=== PATIENT | female | born 1970 | race Caucasian/White ===

== ENCOUNTER 2021-10-27 21:46 | Emergency (ER) | payer OTHER ==
[2021-10-28] MEDS ORDERED: SODIUM CHLORIDE 0.9% 1,000 ML IV ONE (00:04)
[2021-10-28] MEDS ORDERED: ONDANSETRON 4 MG/2 ML VIAL IVP STA (00:04)
[2021-10-28] MEDS ORDERED: KETOROLAC 15 MG/ML 1 ML VIAL IVP STA (00:04)
[2021-10-28] MEDS ORDERED: cefTRIAXone IN SWFI 1,000 MG/10 ML SYRINGE IVP STA (00:06)
[2021-10-28] MEDS ORDERED: SODIUM CHLORIDE 0.9% 50 ML IVPB ONE (01:00)
[2021-10-28] MEDS ORDERED: BAMLANIVIMAB (EUA) 700 MG, ETESEVIMAB (EUA) 1,400 MG in SODIUM CHLORIDE 0.9% 100 ML IVPB ONE (01:00)
--- NOTE | 2021-10-28 02:33 | XR ---
EXAMINATION TYPE: XR chest 2V DATE OF EXAM: 10/28/2021 COMPARISON: NONE HISTORY: Cough TECHNIQUE: 2 views FINDINGS: Heart and mediastinum are normal. Lungs are clear. Diaphragm is normal. Bony thorax is inta ct. IMPRESSION: Normal chest.
--- NOTE | 2021-10-28 02:36 | ED ---
URI HPI - General Chief Complaint: Upper Respiratory Infection Stated Complaint: covid+, wants bam infusion Time Seen by Provider: 10/27/21 23:50 Source: patient Mode of arrival: ambulatory Limitations: no limitations - History of Present Illness Initial Comments: 51 -year-old female patient presents to the emergency department for monoclonal antibody infusion after testing positive for COVID-19. Patient went to urgent care due to urinary symptoms and history of frequent UTIs. They tested her for COVID and she was positive. Patient has history of hypertension and lymphoma and was advised to receive the infusion. She reports cough, congestion, and mild shortness of breath. States she did take mucinex last night for symptoms. She denies any known fever or chills. Reports nausea with one episode of vomiting. Patient denies any recent rash, abdominal pain, nausea, vomiting, diarrhea, constipation, back pain, numbness, tingling, dizziness, weakness, headache, visual changes, or any other complaints. - Related Data Previous Rx's Medication Instructions Recorded Ondansetron [Zofran ODT] 4 mg PO Q8HR PRN #10 tab 10/28/21 Allergies Allergy/AdvReac Type Severity Reaction Status Date / Time Penicillins Allergy Rash/Hives Verified 10/27/21 23:39 nickel AdvReac Rash/Hives Verified 10/27/21 23:40 Review of Systems ROS Statement: Those systems with pertinent positive or pertinent negative responses have been documented in the HPI. ROS Other: All systems not noted in ROS Statement are negative. Past Medical History Past Medical History: Cancer, Hypertension, Thyroid Disorder Additional Past Medical History / Comment(s): Remission non hodgkins folicular lymphoma, migraine, hypothyroid, c3-c7 bone spurs, benign hypermobility. History of Any Multi-Drug Resistant Organisms: None Reported Past Surgical History: Adenoidectomy, Appendectomy, Cholecystectomy, Hysterectomy, Orthopedic Surgery, Tonsillectomy Additional Past Surgical History / Comment(s): bilateral knee surgery post injury, right wrist, right shoulder, c3-c7 bone spurs Past Psychological History: Anxiety, Depression, Panic Disorder Smoking Status: Never smoker Past Alcohol Use History: Occasional Past Drug Use History: None Reported General Exam Limitations: no limitations General appearance: alert, in no apparent distress, other (This is a well- developed, well-nourished adult female in no acute distress.) ENT exam: Present: normal exam, normal oropharynx, mucous membranes moist Respiratory exam: Present: normal lung sounds bilaterally. Absent: respiratory distress, wheezes, rales, rhonchi, stridor Cardiovascular Exam: Present: normal rhythm, tachycardia, normal heart sounds. Absent: systolic murmur, diastolic murmur, rubs, gallop, clicks GI/Abdominal exam: Present: soft, normal bowel sounds. Absent: distended, tenderness, guarding, rebound, rigid Neurological exam: Present: alert, oriented X3, CN II-XII intact Psychiatric exam: Present: normal affect, normal mood Skin exam: Present: warm, dry, intact, normal color. Absent: rash Course Vital Signs 10/27/21 10/28/21 10/28/21 23:28 02:00 03:30 Temperature 98.7 F 99.0 F Pulse Rate 104 H 92 Respiratory 18 20 16 Rate Blood Pressure 127/80 126/78 O2 Sat by Pulse 97 98 Oximetry Medical Decision Making - Medical Decision Making 51-year-old female patient presented requesting monoclonal antibody infusion after testing positive for COVID-19 outpatient. Physical examination revealed clear lung sounds. Soft nontender abdomen. She did also have UTI. She was given 1 dose of IV Rocephin here. IV fluids. She tolerated the infusion without difficulty. She'll be discharged follow-up with the primary care physician for recheck in 1-2 days. Return parameters were discussed in detail. She verbalizes understanding and agrees with this plan. My attending is Dr. Rodriguez. - Radiology Data Radiology results: report reviewed, image reviewed 2 views of the chest are obtained. Report was reviewed in its entirety. Impression by Dr. Caro shows normal chest. Disposition Clinical Impression: COVID-19 Disposition: HOME SELF-CARE Condition: Good Instructions (If sedation given, give patient instructions): Coronavirus Disease 2019 (COVID-19) Additional Instructions: Tips to help you feel better: -Maintain adequate fluid intake - especially water. -Rest, you are healing your body will require extra sleep. -Eat even if you do not feel like it - broth, jello, toast are fine if you cannot eat full meals. -Take tylenol and motrin alternating (if you have no allergies or have not been instructed to avoid these medications) to help with body aches and fevers. -Obtain over the counter vitamin C, zinc, and vitamin D3. -Take medications as prescribed. Follow-up with your primary care physician for recheck in 1-2 days. Return for any new, worsening, or concerning symptoms. Prescriptions: Ondansetron [Zofran ODT] 4 mg PO Q8HR PRN #10 tab PRN Reason: Nausea Is patient prescribed a controlled substance at d/c from ED?: No Referrals: Nonstaff,Physician [Primary Care Provider] - 1-2 days
[2021-10-28 03:59] VITALS: BP 126/78; PULSE 92; RESP 16; TEMP 99
== END 2021-10-28 03:30 | disposition home or self-care (01) ==
LOC: EC 21:46
DX: U07.1 COVID-19 (principal); I10 Essential (primary) hypertension; E03.9 Hypothyroidism, unspecified; G43.909 Migraine, unspecified, not intractable, without status migrainosus; F41.0 Panic disorder [episodic paroxysmal anxiety]; F32.A Depression, unspecified; Z72.89 Other problems related to lifestyle
CPT/HCPCS: 71046; 99284; 96374; 96375 ×2; 96361; J2405; J0696; J1885; J3490